=== PATIENT | female | born 1945 | race Caucasian/White ===

== ENCOUNTER 2020-11-17 13:51 | Outpatient (CLI) | payer MEDICARE, SELFPAY ==
--- NOTE | 2020-11-17 14:03 | XR_ITS ---
WS: [id number] Exam: XR knee RT 1-2V [id number] Date/Time of Exam: 11/17/2020 2:03 PM Reason For Exam: OSTEOARTHRITIS OF RIGHT KNEE No acute fracture or dislocation. No significant joint effusion. Mild tricompartmental DJD. Normal so ft tissues. XR/XR knee RT 1-2V [id number] IMPRESSION: 1. Mild tricompartmental DJD.
== END 2020-11-17 13:52 | disposition home or self-care (01) ==
LOC: RAD 13:58
PROVIDERS: PCP Family Medicine; Visit Provider Family Medicine
DX: M17.11 Unilateral primary osteoarthritis, right knee (principal)
CPT/HCPCS: 73560

== ENCOUNTER → 2023-10-05 09:05 | Outpatient (BNVA) | payer MEDICARE, SELFPAY | PROVIDERS: PCP Family Medicine; Visit Provider Internal Medicine | DX: E03.9 Hypothyroidism, unspecified (principal) | CPT/HCPCS: 36415; 84439; 84443 ==

== ENCOUNTER → 2023-11-03 13:25 | Outpatient (BNVA) | payer MEDICARE, SELFPAY | PROVIDERS: PCP Family Medicine; Visit Provider Internal Medicine | DX: I48.91 Unspecified atrial fibrillation (principal); I49.3 Ventricular premature depolarization; R07.9 Chest pain, unspecified | CPT/HCPCS: 80048; 83880; 93005; 99204 ==

== ENCOUNTER 2023-11-22 13:34 | Outpatient (CLI) | payer MEDICARE, SELFPAY ==
[2023-11-22 14:32] LABS: Blood Urea Nitrogen 15 mg/dL (8-23); Calcium 9.5 mg/dL (8.5-10.5); Carbon Dioxide 28 mmol/L (22-29); Chloride 103 mmol/L (98-107); Glucose 96 mg/dL (65-115); NT Pro B Type Natriuretic Pept 1479 pg/mL (0-450); Osmolality Calculated 291 mOsm/kg (285-295); Sodium 140 mmol/L (136-145)
[2023-11-22 14:37] LABS: Anion Gap 13.7 (5-19); Potassium 4.7 mmol/L (3.5-5.1)
== END 2023-11-22 13:35 | disposition home or self-care (01) ==
LOC: LAB 13:35
PROVIDERS: Visit Provider Internal Medicine
DX: I48.91 Unspecified atrial fibrillation (principal)
CPT/HCPCS: 36415; 80048; 83880

== ENCOUNTER → 2024-08-22 10:43 | Outpatient (BNVA) | payer MEDICARE, SELFPAY | PROVIDERS: PCP Nurse Practitioner Family; Visit Provider Nurse Practitioner Family | DX: I48.11 Longstanding persistent atrial fibrillation (principal); Z79.82 Long term (current) use of aspirin; E78.5 Hyperlipidemia, unspecified; I48.91 Unspecified atrial fibrillation | CPT/HCPCS: 99214 ==

== ENCOUNTER → 2024-09-17 09:21 | Outpatient (BNVA) | payer MEDICARE, SELFPAY | PROVIDERS: PCP Nurse Practitioner Family; Visit Provider Nurse Practitioner Family | DX: I48.11 Longstanding persistent atrial fibrillation (principal); Z79.82 Long term (current) use of aspirin; E78.5 Hyperlipidemia, unspecified | CPT/HCPCS: 99213 ==

== ENCOUNTER → 2025-01-08 15:06 | Outpatient (BNVA) | payer MEDICARE, SELFPAY | PROVIDERS: PCP Nurse Practitioner Family; Visit Provider Internal Medicine | DX: I48.91 Unspecified atrial fibrillation (principal); R07.9 Chest pain, unspecified; E78.5 Hyperlipidemia, unspecified | CPT/HCPCS: 99214 ==

== ENCOUNTER 2025-01-18 09:03 | Outpatient (CLI) | payer MEDICARE, SELFPAY ==
--- NOTE | 2025-01-18 09:30 | USR_ITS ---
PROCEDURE INFORMATION: Exam: US Duplex Lower Extremity Veins, Bilateral Exam date and time: 01/18/2025 9:34 AM Age: 79 years old Clinical indication: Pain; Leg, lower; Bilateral; Additional info: Bilateral leg pain TECHNIQUE: Imaging protocol: Real-time duplex ultrasound of the bilateral extremities with 2-D tran scale, color Doppler flow and spectral waveform analysis including responses to compression and other maneuvers (when performed) with image documentation. Complete exam focused on the lower extremity veins. COMPARISON: No relevant prior studies available. FINDINGS: Right deep veins: Unremarkable. The common femoral, femoral, proximal profunda femoral and popliteal veins are patent without thrombus. Normal Doppler waveforms. Normal compressibility and/or augmentation response. Left deep veins: Unremarkable. The common femoral, femoral, proximal profunda femoral and popliteal veins are patent without thrombus. Normal Doppler waveforms. Normal compressibility and/or augmentation response. Superficial veins: Greater saphenous veins at the saphenofemoral junctions are patent bilaterally without thrombus. Soft tissues: Unremarkable. Other findings: Right distal GSV and proximal mid SSV reflux. US/CV lora dup insukristine [facility] [id number] IMPRESSION: No evidence of deep vein thrombosis.
== END 2025-01-18 09:04 | disposition home or self-care (01) ==
LOC: RAD 09:05
PROVIDERS: PCP Nurse Practitioner Family; Visit Provider Internal Medicine
DX: M79.604 Pain in right leg (principal); M79.605 Pain in left leg; I87.2 Venous insufficiency (chronic) (peripheral)
CPT/HCPCS: 93970

== ENCOUNTER 2025-02-04 08:49 | Outpatient (CLI) | payer MEDICARE, SELFPAY ==
--- NOTE | 2025-02-04 | ECG_ITS ---
[facility] Test Date: 2025-02-04 Pat Name: Rakel Patel Department: Room: Gender: Female [employer] Program Director: : 1945 Requested By: Shay Marcus Order Number: [id number] Reading MD: FRANCIS WILHELM Interpretive Statements Lung unchanged pre/post procedure; Intraprocedure shortess of breath; Symptoms resoled by discharge NOTE: Please note that this is the electrocardiogram portion of the Lexiscan/Sestamibi stress test. The perfusion scan will be documented separately. DATA: Baseline heart rate was 108 beats per minute. Baseline blood pressure was 162/105 millimeters of mercury. Target heart rate was 141. Maximum heart rate achieved was 154. which was 109 % of the predicted target heart rate. Maximum blood pressure was 162/105 millimeters of mercury. The reason for ending the test was completion of the protocol. The patient did not experience any symptoms. ELECTROCARDIOGRAM: BASELINE: Atrial fibrillation Normal axis. Otherwise, no ST-T changes suggestive of ischemia noted. No arrhythmia noted. EXERCISE: After Lexiscan injection, no ST-T changes suggestive of ischemic noted. No arrhythmia noted. CONCLUSION: Please note due to baseline abnormality of the EKG specificity and sensitivity of the EKG portion of LexiScan MIBI stress test will be low 1. EKG not suggestive of ischemia 2. Lexiscan injection unremarkable. 3. Perfusion scan will be documented separately. Electronically Signed On 02-04-2025 12:32:59 CIRCULATION DIRECTOR by FRANCIS WILHELM [email or web address]
[2025-02-04 08:55] VITALS: BMI 31.5
--- NOTE | 2025-02-04 08:56 | NMCV_ITS ---
NM esme perf SPECT r/s* [id number] Rakel Patel Age: 79 Gender: F : 1945 Exam Date: 02/04/2025 09:38 Ordering Phys: Shay Marcus M.D ([email or web address]) Technologist: SHERRY Ag Exam Location: [facility] Indications: cp STRESS TEST Please see separate stress [facility] for full findings IMAGE PROTOCOL Rest/Stress 1 Lexiscan Day Radiopharmaceutical Dose (mCi) Administration Site Administered by Rest: Tc-99m 10.6 IV SHERRY Ag Stress:Tc-99m 32.4 IV SHERRY Negro Rest: 02/04/2025 60 Discovery 630 Stress: 02/04/2025 30 Discovery 630 0.4mg Lexiscan. Supine position only as patient was unable to lay prone. SPECT RESULTS Technical Quality: Good Raw Data Analysis: Normal Image Corrections: No attenuation or motion correction applied Summed Stress Score: 1 Summed Rest Score: 1 Summed Difference Score: 1 PERFUSION FINDINGS And small area of slightly decreaseds tracer uptake was noted in the apical lateral segment with some reversibility. FUNCTIONAL RESULTS (calculated via Gated SPECT) Stress Image LV EF (%): 40 Stress EDV (mL):92 TID: 1.04 Stress ESV (mL):55 FUNCTIONAL FINDINGS: Segmental wall motion analysis revealed severe diffuse hypokinesia of the anterior wall, septum and the LV apex. The transient ischemic dilatation ratio was within normal limits. IMPRESSIONS 1, myocardial perfusion imaging revealing a small area of reversible defect in the apical lateral segment, may suggest ischemia in the distribution of the distal left circumflex artery 2. Slightly diminished LV ejection fraction of 40% 3. LV wall motion analysis revealing severe diffuse hypokinesia of the septum, anterior wall and the LV apex 4. Mildly dilated LV cavity with an end-systolic volume of 55 mL No similar previous studies are available for comparison Dr Anastacio Shen MD [facility] (Electronically Signed) Final Date: 04 February 2025 21:59 S
[2025-02-04] MEDS: aminophylline 25 mg/mL SDV 20 mL IVP (10:19)
[2025-02-04 10:25] VITALS: BP 130/103; PULSE 108
== END 2025-02-04 08:50 | disposition home or self-care (01) ==
LOC: CDL 08:55
PROVIDERS: PCP Nurse Practitioner Family; Visit Provider Internal Medicine
DX: R07.9 Chest pain, unspecified (principal)
CPT/HCPCS: 36415; 78452; 93017; 96374; A9500; J0280